=== PATIENT | male | born 1965 | race Caucasian/White ===

== ENCOUNTER 2020-03-12 16:29 | Emergency (ER) | payer OTHER ==
[~2020-03-12] VITALS: Ht 175.3 cm; Wt 88.5 kg
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
--- OUTSIDE RECORDS SUMMARY | 2020-03-12 16:53 | XMS REPORT | Continuity of Care Document ---
Author Author Jessica Casarez Streyner MANNY Goncalves [place]ASBOX Address Unknown Phone Unavailable Care Team Providers Care Chin Strap Cutter Name Role Phone Virtual Event Bags Information Vitaldent Unavailable Un available Problems Problem Status Onset Date Classification Date Reported Comments Source NAUSEA AND BLOODY STOOL Active 10/23/2016 [facility] Anxiety (finding) Active Problem 11/13/2016 [facility] Diarrhea (finding) Active Problem 11/13/2016 [facility] Disease of gallbladder (disorder) Active Problem 11/2016 [facility] Stress (finding) Active Problem 11/13/2016 [facility] Medications Medication Details Route Status Patient Instructions Ordering Provider Order Date Source sucralfate 1 g oral tablet 1 g m = 1 tab, PO, TID, # 120 tab, 1 Refill(s) Active 11/10/2016 [facility] Ativan 0 Refill(s) Active 11/10/2016 [facility] Zofran 0 Refill(s) Active 11/10/2016 [facility] Allergies, Adverse Reactions, Alerts No Known Medication Allergies Immunizations No Data Provided for This Section Results No Data Provided for This Section Pathology Reports No Data Provided for This Section Diagnostic Reports No Data Provided for This Section Consultation Notes No Data Provided for This Section Discharge Summaries No Data Provided for This Section History and Physicals No Data Provided for This Section Vital Signs Vital Sign Value Date Comments Source Height 175.26 cm 11/10/2016 [facility] BMI Calculated 26.93 11/10/2016 [facility] Weight 82.727 11/10/2016 [facility] Systolic (mm Hg) 142 11/10/2016 [facility] Diastolic (mm Hg) 81 11/10/2016 [facility] Heart Rate 81 11/10/2016 [facility] Respitory Rate 16 11/10/2016 [facility] Encounters Location Location Details Encounter Type Encounter Number Reason For Visit Attending Provider ADM Date DC Date Status Source [facility] Out[facility] [id number] Barrett Butt 11/10/2016 11/11/2016 [facility] Procedures Procedure Code Date Perfomer Comments Source Biceps tunnel cineplasty<sup>1</sup> 504231282 right [facility] Bunionectomy<sup>2</sup> 90378 002 right [facility] Knee joint operation<sup>3</sup> 362476949 meniscus t aer [facility] Shoulder repair<sup>4</sup> 21 [id number] left [facility] Vasectomy [id number] [facility] Assessment and Plan No Data Provided for This Section Plan of Care No Data Provided for This Section Social History Social History Date Source Social History TypeResponse Alcohol Current, Type Beer, Wine, Liquor. Frequency: 1-2 times per year. Smoking Status Never smoker; Type: Cigarettes; Ready to change: No; Concerns about tobacco use in household: No; Exposure to Tobacco Smoke None; Cigarette Smoking Last 365 Days No; Reg Smoking Cessation Counseling No 11/10/2016 [facility] Family History No Data Provided for This Section Advance Directives No Data Provided for This Section Functional Status No Data Provided for This Section
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
--- NOTE | 2020-03-12 17:55 | NUR ---
Brandon murphy at bedside
--- NOTE | 2020-03-12 17:56 | Diagnostic Imaging Report ---
EXAMINATION: CXR 2 VIEW - HOPD INDICATION: ^L thumb COMPARISON: None FINDINGS: PA and lateral views TUBES and LINES: None. . LUNGS/PLEURA: Lungs are well inflated. There is no evidence of pneumonia or pulmonary edema.. There is no pleural effusion or pneumothorax. HEART AND MEDIASTINUM: The cardiomediastinal silhouette is unremarkable. BONES AND SOFT TISSUES: No acute osseous lesion. Soft tissues are unremarkable. UPPER ABDOMEN: No free air under the diaphragm. IMPRESSION: No acute thoracic abnormality. Signed by: Dru Hicks MD on 03/12/2020 5:53 PM
--- NOTE | 2020-03-12 17:57 | Diagnostic Imaging Report ---
HIP 2 VW RT - HOPD - Multiple views HISTORY: L thumb COMPARISON: None available. FINDINGS: Bones: No acute displaced fracture. Osseous alignment is within normal limits. Joints: The joint spaces are well-maintained. Soft tissues: The soft tissues appear unremarkable. IMPRESSION: No acute radiographic abnormality. Signed by: Dru Hicks MD on 03/12/2020 5:54 PM
--- NOTE | 2020-03-12 18:01 | Diagnostic Imaging Report ---
SHOULDER 2+VW RT - HOPD - Multiple views HISTORY: R shoulder pain COMPARISON: None available. FINDINGS: Bones: There is a mildly displaced fracture of the lateral third of right the clavicular shaft. Osseous alignment is within normal limits. Joints: The joint spaces are well-maintained. Soft tissues: Mild soft tissue swelling about the fracture site. IMPRESSION: Mildly displaced fracture of the lateral third of the right clavicular shaft. Signed by: Dru Hicks MD on 03/12/2020 5:58 PM
[2020-03-12] MEDS ORDERED: MORPHINE SULFATE INJ 4 MG/ML INJ 1ML IM STA (18:25)
== END 2020-03-12 20:07 | disposition home or self-care (01) ==
LOC: FSED 16:29
DX: S42.021A Displaced fracture of shaft of right clavicle, initial encounter for closed fracture (principal); M79.645 Pain in left finger(s); M25.551 Pain in right hip; V19.9XXA Pedal cyclist (driver) (passenger) injured in unspecified traffic accident, initial encounter; Y93.55 Activity, bike riding; Y92.488 Other paved roadways as the place of occurrence of the external cause
CPT/HCPCS: 71046; 73030; 73502; 99283; J2270